=== PATIENT | female | born 1985 | race Caucasian/White ===

== ENCOUNTER 2023-08-07 20:39 | Emergency (ER) | payer OTHER ==
[~2023-08-07] VITALS: Ht 162.6 cm; Wt 59.1 kg
[2023-08-07 21:23] VITALS: TEMP 97.8
[2023-08-08 00:28] VITALS: BP 115/69; PULSE 59; RESP 18
[2023-08-08] MEDS ORDERED: NIRM1TAB4 PO (00:33)
== END 2023-08-08 00:48 | disposition home or self-care (01) ==
LOC: EMS 20:44
DX: U07.1 COVID-19 (principal); F41.9 Anxiety disorder, unspecified; F32.A Depression, unspecified
CPT/HCPCS: 99283; Z7502